=== PATIENT | female | born 1950 | race Caucasian/White ===

== ENCOUNTER 2020-06-14 10:35 | Inpatient (IN) | payer MEDICARE, SELFPAY ==
[2020-06-14] VITALS (20 sets, daily range): BP systolic 79–121; BP diastolic 44–71; PULSE 68–94; RESP 16–28; TEMP 36.3–37.1; O2SAT 89–97; BMI 23.7; BMI 24.6; BMI 24.7
--- NOTE | 2020-06-14 10:52 | EKG12_ITS ---
Test Reason : ABNL EKG Blood Pressure : / mmHG Vent. Rate : 070 BPM Atrial Rate : 070 BPM P-R Int : 134 ms QRS Dur : 078 ms QT Int : 378 ms P-R-T Axes : 067 067 065 degrees QTc Int : 408 ms Normal sinus rhythm Normal ECG Confirmed by GALA RAE, RUTHIE ([id number]), editor newspaper WILLIAM LINN ([id number]) on 06/17/2020 10:50:39 AM Referred By: RACHEL Confirmed By:RUTHIE CEDEÑO MD
--- NOTE | 2020-06-14 10:52 | RAD_ITS ---
STUDY: X-RAY CHEST REASON FOR EXAM: Female, 70 years old. sob, dizziness, cough, vomiting TECHNIQUE: Frontal view COMPARISON: 08/16/2017. FINDINGS: The lungs are clear and expanded. There is no demonstrated pleural abnormality. Normal size heart. Normal mediastinum and loy. Normal visualized pulmonary arteries. Normal visualized aortic arch and descending thoracic aorta. Normal visualized thoracic spine. Normal visualized ribs, clavicles, and shoulders. There is no demonstrated abnormality of the visualized soft tissue structures of the upper abdomen. RAD/Chest 1 View (Portable) IMPRESSION: Normal x-ray examination of the chest. Electronically Signed: Philippe Joe DO at 12:24 EDT Tel [phone], Service support ,
[2020-06-14 11:01] LABS: Absolute Lymphocyte Count 2.43 X10^3/uL (0.83-4.51); Basophil# 0.05 X10^3/uL; Basophil% 0.5 % (0-1); Eosinophil# 0.16 X10^3/uL; Eosinophils% 1.7 % (0-5); Hematocrit 47.4 % (37-47); Hemoglobin 15.4 g/dL (12.0-15.0); Lymphocyte # 2.43 X10^3/ul (4.0); Lymphocyte % 25.8 % (19-41); Mean Corp Hgb Conc 32.5 g/dL (32-36); Mean Corpuscular Hgb 31.4 pg (27.0-32.0); Mean Corpuscular Volume 96.5 fL (81-99); Mean Platelet Vol. 9.8 fl (6.2-12.0); Monocyte# 0.79 X10^3/uL; Monocyte% 8.4 % (0-10); NRBC Flagged by Analyzer 0 % (0-5); Neutrophil # 5.97 X10^3/uL (2.7-7.7); Neutrophil % 63.4 % (47-70); Platelet Count 373 K/mm3 (150-450); RBC Distribution Width CV 12.1 % (11.6-14.6); Red Blood Count 4.91 M/mm3 (4.2-5.4); White Blood Count 9.4 K/mm3 (4.4-11.0)
[2020-06-14 11:08] LABS: Partial Thromboplast Time 25.1 Seconds (24.1-36.2)
--- NOTE | 2020-06-14 11:08 | ED.VIS.FLU ---
History of Present Illness Chief Complaint: Shortness of Breath Informant: Patient, Relative Narrative: Patient presenting for evaluation secondary to shortness of breath. Patient tells me that back in November she suffered an illness that she came into the emergency department for, and was placed on antibiotic. She states that she had some improvement, but basically since November she reports that she has been feeling ill. Patient tells me specifically this week she has been having increasing illness, she has been having some nausea with intermittent vomiting. She has body aches, had a cough that is productive of white sputum. She states that she has exertional dyspnea. She has some constipation but no diarrhea. She denies any fevers, she does have some body aches. She denies any sick contacts. She denies any underlying history of COPD or asthma. Review of systems otherwise negative. Past Medical History - Allergies and Home Meds Allergies/Adverse Reactions: Allergies No Known Allergies Allergy (Verified 06/14/20 10:37) Primary Care Physician: Toshia Henriquez MD [Primary Care Provider] - Prior records reviewed: Yes Past Medical History: - - Stroke, Hypothyroid, Hyperlipidemia Surgical History: cholecystectomy, hysterectomy, - - tennis elbow,carpal tunnel Lives: With Family Smoking Status: Current every day smoker Alcohol: None Drugs: None - Family History Maternal Family History: Reports: - - cva, mother with colon cancer Paternal Family History: Reports: Heart Disease, - - strokes Review of Systems All systems negative except as indicated General: Reports: Malaise Cardiovascular: Reports: Chest pain Respiratory: Reports: Dyspnea, Cough, Sputum Gastrointestinal: Reports: Nausea, Vomiting, Constipation Genitourinary: Denies: Dysuria, Hematuria, Frequency Musculoskeletal: Reports: Myalgias Skin: Denies: Rash Neurological: Denies: Headache, Weakness, Numbness Physical Exam Vital Signs/Narrative: Vital Signs Temp Pulse Resp BP Pulse Ox 06/14/20 10:37 97.4 F L 94 28 H 110/64 97 Inital Vital Signs reviewed: Yes General: Well nourished, Well developed Head: Normocephalic, Atraumatic Eyes: Perrl, EOMI ENT: Moist mucous membranes, No rhinorrhea Neck: Supple, Nontender Cardiovascular: Regular rate, Regular rhythm, No murmurs Respiratory: - - Patient is somewhat tachypneic. She has left-sided rales. She has some transmitted upper airway noises, but these seem intentional and do not seem like stridor as the patient is phonating normally. Abdomen: Soft, Nontender, Nondistended, Normal bowel sounds Back: Nontender, Normal Inspection Extremities: Nontender, No edema Skin: Normal color, No rash Neurological: Alert, Oriented x3, Cranial nerves II-XII grossly intact, Normal Strength, Normal Sensation Psychological: Normal affect Diagnostic/Tx/Re-eval Clinical Impression(s) from Imaging Studies Chest X-Ray 06/14/20 10:52 IMPRESSION: Normal x-ray examination of the chest. Electronically Signed: Philippe Joe DO at 12:24 EDT Tel [phone], Service support , Laboratory Data 06/14/20 06/14/20 06/14/20 10:49 10:49 10:49 WBC 9.4 RBC 4.91 Hgb 15.4 H Hct 47.4 H MCV 96.5 MCH 31.4 MCHC 32.5 RDW Std Deviation 43.0 RDW Coeff of Tania 12.1 Plt Count 373 MPV 9.8 Immature Gran % (Auto) 0.200 Neut % (Auto) 63.4 Lymph % (Auto) 25.8 [place] % (Auto) 8.4 Eos % (Auto) 1.7 Baso % (Auto) 0.5 Absolute Neuts (auto) 6.0 Absolute Lymphs (auto) 2.43 Nucleated RBC % 0 PT 12.3 INR 1.0 APTT 25.1 Sodium 138 Potassium 4.2 Chloride 105 Carbon Dioxide 29.0 Anion Gap 4 L BUN 9 Creatinine 0.90 Estim Creat Clear Calc 53.67 Est GFR (MDRD) Af Amer 80 Est GFR (MDRD) Non-Af 66 BUN/Creatinine Ratio 10.1 Glucose 106 Lactic Acid Calcium 9.0 Total Bilirubin 0.50 AST 16 ALT 17 Alkaline Phosphatase 114 Troponin I < 0.015 Total Protein 7.2 Albumin 3.5 Globulin 3.7 Albumin/Globulin Ratio 0.9 06/14/20 10:49 WBC RBC Hgb Hct MCV MCH MCHC RDW Std Deviation RDW Coeff of Tania Plt Count MPV Immature Gran % (Auto) Neut % (Auto) Lymph % (Auto) [place] % (Auto) Eos % (Auto) Baso % (Auto) Absolute Neuts (auto) Absolute Lymphs (auto) Nucleated RBC % PT INR APTT Sodium Potassium Chloride Carbon Dioxide Anion Gap BUN Creatinine Estim Creat Clear Calc Est GFR (MDRD) Af Amer Est GFR (MDRD) Non-Af BUN/Creatinine Ratio Glucose Lactic Acid 2.8 H* Calcium Total Bilirubin AST ALT Alkaline Phosphatase Troponin I Total Protein Albumin Globulin Albumin/Globulin Ratio - EKG Initial EKG Interpretation: - - Sinus rhythm at [address] segments normal T waves normal CO and QTc intervals no evidence of acute ischemia or arrhythmia - Medical Decision Making Patient presented secondary to cough and generalized illness. She is mildly ill-appearing, not toxic, does have some soft blood pressures work-up for sepsis was obtained. CBC demonstrates no leukocytosis but does show some hemoconcentration, chemistry was unremarkable. Lactic acid was found to be elevated to 2.8 concerning for sepsis. Patient was given fluid resuscitation in the emergency department. She was given Rocephin and azithromycin. Chest x-ray by my personal review as well as radiology shows no infiltrates. Coronavirus testing was sent, although I feel that this is of low likelihood. Upon repeat evaluation at the patient at 1230 she was noted to have a room air pulse ox of 90, when she ambulates it goes around 94. I am concerned that the patient has the early signs of worsening community-acquired pneumonia with lactic acidosis and borderline hypoxia. I believe she requires admission. I will discuss this with hospitalist. ED Disposition - Plan for ED Patient: Disposition: Acute Care Hospital [facility] Diagnosis: Community acquired pneumonia, Hypoxia
[2020-06-14 11:10] LABS: Prothrombin Time (Protime)PT. 12.3 SECONDS (11.7-14.9)
[2020-06-14 11:30] LABS: ALB/GLOB Ratio 0.9 RATIO (0.9-2.4); AST(SGOT) 16 U/L (15-37); Alanine Aminotransfer ALT/SGPT 17 U/L (13-56); Albumin, Serum 3.5 g/dL (3.2-5.0); Alkaline Phosphatase 114 U/L (45-117); Anion Gap 4 (5-15); BUN 9 mg/dL (7-18); BUN/Creat Ratio 10.1 RATIO (10-20); Chloride 105 mmol/L (98-107); EST Glomerular Filtration Rate 66 mL/min (>60); Est Glom Filt Rate - Afr Amer 80 mL/min (>60); Estimated Creatinine Clearance 53.67 ml/min; Globulin 3.7 g/dL (2.2-4.2); Glucose 106 mg/dL (74-106); Potassium 4.2 mmol/L (3.5-5.1); Protein, Total 7.2 g/dL (6.4-8.2); Sodium Level 138 mmol/L (136-145)
[2020-06-14 11:35] LABS: Lactic Acid 2.8 mmol/L (0.4-1.9)
[2020-06-14] MEDS: 0.9% Normal Saline 1,000 ML 999 ML IV (12:03)
[2020-06-14] MEDS: Ceftriaxone 1 GM/50 ML BAG IV (12:03)
[2020-06-14 13:05] LABS: Probe Check PASS; Specimen Processing Control PASS
[2020-06-14 13:10] LABS: Bacteria 0 SEEN /hpf (None Seen); Mucous, Urine 0 SEEN /hpf (<or=2+); Red Blood Cells-Urine 0 SEEN /hpf (0-5); White Blood Cells 0 SEEN /hpf (0-5)
[2020-06-14 13:18] LABS: Color, Urine Yellow (Yellow); Glucose, Dipstick Normal (Normal); Ketone-Dipstick Negative (Negative); Leukocyte Esterase-Dipstick Negative /ul (Negative); Nitrite-Dipstick Negative (Negative); Occult Blood-Urine Negative /ul (Negative); Protein-Dipstick Negative (Negative); Urine Bilirubin Dipstick Negative (Negative); Urine Clarity Clear (Clear); Urine Urobilinogen Normal (Normal)
[2020-06-14 13:28] LABS: Squamous Epithelial Cells - UA 0-5 SEEN /hpf (5-10)
--- NOTE | 2020-06-14 13:43 | PCM.HP.STD ---
History of Present Illness Date of Admission: 06/14/20 Chief Complaint: shortness of breath The patient is a 70 year old F who for the past week has been progressively short of breath. Patient has been adamant about not coming to the hospital until the daughter was able to get the patient come to the hospital. Patient has just been more short of breath. She has been trying to use honey with apple cider vinegar without relief. Patient just been short of breath as well as coughing. Patient presented to the emergency room where her initial vital signs were concerning as she had a pulse 94 and a respiratory rate of 28 though she was not hypoxic. Lab work was significant only for a lactic acid of 2.8. Chest x-ray was unremarkable but concern was for early onset pneumonia and patient received ceftriaxone as well as azithromycin. Patient complains of right-sided neck pain as well as a headache. States that she has had blurred vision over the past couple weeks but that is been unchanged and bilateral. She denies any anosmia nor dysgeusia, denies any sick contacts and denies any direct contact with anyone with COVID-19. [] Past Medical History Past Medical History (Chronic Problems): Chronic Problems Anxiety (Chronic) Medical History: Medical History (Last Updated 06/14/20 @ 13:[address] Wily Delatorre, DO) CVA (cerebral vascular accident) I63.9 Depression F32.9 Allergies No Known Allergies Allergy (Verified 06/14/20 10:37) Home Medications: Ambulatory Orders Medication Instructions Recorded Aspirin [Adult Low Dose Aspirin EC] 81 mg PO DAILY 07/21/16 Levothyroxine [Synthroid] 25 mcg PO DAILY 07/21/16 Atorvastatin Calcium [Lipitor] 20 mg PO QHS 06/14/20 Escitalopram Oxalate [Lexapro] 5 mg PO DAILY 06/14/20 Surgical History: cholecystectomy, hysterectomy, - - tennis elbow,carpal tunnel Lives: With Family Smoking Status: Light Smoker (<10/day) Tobacco Use: Cigarettes Alcohol: None Drugs: None - *Family History Maternal History Items: - - cva, mother with colon cancer Paternal History Items: Heart Disease, - - strokes Review of Systems Constitutional: Reports: Malaise. Denies: Anorexia, Chills, Fever Eyes: Reports: Blurred vision. Denies: Double vision HEENT: Denies: Head Aches, Sinus Congestion, Sinus Drainage Cardiovascular: Denies: Chest Pain, Palpitations Respiratory: Reports: Cough, Shortness of Breath, Sputum production - clear Gastrointestinal: Denies: Abdominal Pain, Nausea, Vomiting Genitourinary: Denies: Dysuria Musculoskeletal: Reports: - - right arm/hand hyperesthesia since CVA Skin: Denies: Rash, Wounds Neurological: Denies: Numbness, Tingling, Focal weakness Hematologic/ Lymphatic: Denies: Easy Bruising, Easy Bleeding, Hx of blood clot Comment: All review of systems were negative except as mentioned above in the history of present illness and the other review of systems. VTE Information - Inpt Only VTE Present on Admission: No VTE Mechan Device Prophylaxis: None VTE Pharm Prophylaxis ordered?: No Reason prophylaxis not ordered:: Treatment Not Indicated Patient Problems: Active and Suspected Problems Community acquired pneumonia (Acute) Hypoxia (Acute) - Physical Exam Vitals/I&O's: Vital Signs Temp Pulse Resp BP Pulse Ox 36.7 C 77 18 121/58 H 89 06/14/20 13:01 06/14/20 13:36 06/14/20 13:36 06/14/20 13:36 06/14/20 13:36 Oxygen Delivery Method Room Air Weight: 66.678 kg Body Mass Index (BMI) 23.7 Finger Stick Blood Glucose 137 Intake and Output for Last 24 Hours 06/12/20 06/13/20 06/14/20 23:59 23:59 23:59 Intake Total 50 / 50 Balance 50 / 50 General: Alert, Cooperative, No apparent distress HEENT: Atraumatic, PERRLA, Normocephalic, - - No scleral icterus Oral: Moist Mucosa, No Gingival or Mucosal Lesions/ Ulcerations Neck: No Nodes, Thyroid Normal Size and Texture Lungs: Normal air movement, - - Crackles in the left lower lobe Cardiovascular: Regular rate, Regular Rhythm Abdomen: Bowel Sounds Present, Soft, Non Tender, Non-Distended Extremities: No edema, No Calf Tenderness Skin: No rashes, No breakdown Musculoskeletal: No Tenderness to Palpation of Joints or Extremities, No Muscle Wasting Lymphatic: No Cervical, Supraclavicular, or Inguinal Adenopathy, Cervical Adenopathy Neurological: Motor Exam 5/5 strength throughout, - - No clonus Psych/Mental Status: Normal Affect, Appropriate Laboratory Results 06/14/20 10:49: WBC 9.4, RBC 4.91, Hgb 15.4 H, Hct 47.4 H, MCV 96.5, MCH 31.4, MCHC 32.5, RDW Std Deviation 43.0, RDW Coeff of Tania 12.1, Plt Count 373, MPV 9.8, Immature Gran % (Auto) 0.200, Neut % (Auto) 63.4, Lymph % (Auto) 25.8, [place] % (Auto) 8.4, Eos % (Auto) 1.7, Baso % (Auto) 0.5, Absolute Neuts (auto) 6.0, Absolute Lymphs (auto) 2.43, Nucleated RBC % 0 06/14/20 10:49: PT 12.3, INR 1.0, APTT 25.1 06/14/20 10:49: Sodium 138, Potassium 4.2, Chloride 105, Carbon Dioxide 29.0, Anion Gap 4 L, BUN 9, Creatinine 0.90, Estim Creat Clear Calc 53.67, Est GFR (MDRD) Af Amer 80, Est GFR (MDRD) Non-Af 66, BUN/Creatinine Ratio 10.1, Glucose 106, Calcium 9.0, Total Bilirubin 0.50, AST 16, ALT 17, Alkaline Phosphatase 114, Troponin I < 0.015, Total Protein 7.2, Albumin 3.5, Globulin 3.7, Albumin/Globulin Ratio 0.9 06/14/20 10:49: Lactic Acid 2.8 H* 06/14/20 11:52: COVID-19 (CHARLES) Negative 06/14/20 13:00: Urine Color Yellow, Urine Clarity Clear, Urine pH 7.0, Ur Specific [place] 1.010, Urine Protein Negative, Urine Glucose (UA) Normal, Urine Ketones Negative, Urine Occult Blood Negative, Urine Nitrite Negative, Urine Bilirubin Negative, Urine Urobilinogen Normal, Ur Leukocyte Esterase Negative, Urine RBC 0 SEEN, Urine WBC 0 SEEN, Ur Squamous Epith Cells 0-5 SEEN, Urine Bacteria 0 SEEN, Urine Mucus 0 SEEN Chest x-ray reviewed shows some chronic changes but no acute infiltrate nor edema. Assessment/Plan All Active Problems Community acquired pneumonia (Acute) Hypoxia (Acute) Stroke (Acute) Hypothyroid (Acute) Facial droop (Acute) 1. Severe sepsis: Patient met 2 of 4 Sirs criteria plus a lactic acid of 2.8. Presumably this is related with early onset pneumonia or bronchitis. COVID-19 negative here. Patient received Rocephin and azithromycin in the emergency room. Urinalysis negative. Blood cultures drawn and pending. 2. Pneumonia, presumed pneumococcal: Continue with antibiotics as above. Check urinary antigens for Streptococcus and Legionella. Check sputum culture. 3. History of stroke: Continue with aspirin and atorvastatin 4. VTE prophylaxis: Not indicated as patient is observation at this time. Clinically, patient is hemodynamically stable. Patient will be admitted to the ICU, not of clinical concern, but out of compliance is put forth by Quality as put forth by this institution. OBSV E&M: [id number] Initial observation care L3
[2020-06-14 14:58] LABS: Reflex Lactate? Y
[2020-06-14 15:52] LABS: Lactic Acid 1.4 mmol/L (0.4-1.9)
--- NOTE | 2020-06-14 17:12 | EKG12_ITS ---
Test Reason : CP Blood Pressure : / mmHG Vent. Rate : 080 BPM Atrial Rate : 080 BPM P-R Int : 130 ms QRS Dur : 074 ms QT Int : 376 ms P-R-T Axes : 061 063 063 degrees QTc Int : 433 ms Normal sinus rhythm Normal ECG When compared with ECG of 16-AUG-2017 22:08, ST now depressed in Anterior leads Confirmed by GALA RAE, RUTHIE ([id number]), editor & co founder WILLIAM LINN ([id number]) on 06/17/2020 10:51:10 AM Referred By: RACHEL Confirmed By:RUTHIE CEDEÑO MD
--- NOTE | 2020-06-14 17:13 | NURSING ---
arrived from ICU @ 1700
--- NOTE | 2020-06-14 17:21 | NURSING ---
pt c/o chest pain, at a 5 and stated she has never felt like this before, pt also c/o sob. ekg ordered rt notified of ekg order. dr mckeon notified of chest pain.
[2020-06-14] MEDS: Acetaminophen 325 MG Tablet 650 MG PO (21:04)
[2020-06-14] MEDS: guaiFENesin 1,200 MG Tablet 1200 MG PO (21:04)
[2020-06-14] MEDS: Atorvastatin Calcium 20 MG Tablet PO (21:04)
[2020-06-14] MEDS: 0.9% Saline Lock 10 ML Syringe IV (21:17)
[2020-06-15] VITALS (11 sets, daily range): BP systolic 83–98; BP diastolic 51–58; PULSE 64–88; RESP 16–20; TEMP 36.6–37.2; O2SAT 88–98
[2020-06-15] MEDS: Levothyroxine 25 MCG TABLET PO (06:03)
[2020-06-15] MEDS: 0.9% Saline Lock 10 ML Syringe IV (06:06)
[2020-06-15 06:29] LABS: Absolute Lymphocyte Count 3.38 X10^3/uL (0.83-4.51); Absolute Neutrophil Count 2.8 X10^3/uL (2.0-7.7); Basophil# 0.05 X10^3/uL; Basophil% 0.7 % (0-1); Eosinophil# 0.23 X10^3/uL; Eosinophils% 3.2 % (0-5); Hematocrit 44.3 % (37-47); Lymphocyte # 3.38 X10^3/ul (4.0); Lymphocyte % 47.3 % (19-41); Mean Corp Hgb Conc 31.6 g/dL (32-36); Mean Corpuscular Hgb 30.3 pg (27.0-32.0); Mean Corpuscular Volume 95.9 fL (81-99); Mean Platelet Vol. 10.1 fl (6.2-12.0); Monocyte# 0.72 X10^3/uL; Monocyte% 10.1 % (0-10); NRBC Flagged by Analyzer 0 % (0-5); Neutrophil # 2.76 X10^3/uL (2.7-7.7); Neutrophil % 38.6 % (47-70); Platelet Count 363 K/mm3 (150-450); RBC Distribution Width CV 12.1 % (11.6-14.6); RBC Distribution Width SD 42.5 fl (35.1-43.9); Red Blood Count 4.62 M/mm3 (4.2-5.4); White Blood Count 7.2 K/mm3 (4.4-11.0)
[2020-06-15 06:48] LABS: Anion Gap 4 (5-15); BUN 8 mg/dL (7-18); BUN/Creat Ratio 10.1 RATIO (10-20); Calcium,Total 8.7 mg/dL (8.5-10.1); Chloride 108 mmol/L (98-107); Creatinine, Serum 0.79 mg/dL (0.55-1.02); EST Glomerular Filtration Rate 76 mL/min (>60); Est Glom Filt Rate - Afr Amer 92 mL/min (>60); Glucose 89 mg/dL (74-106); Potassium 4.6 mmol/L (3.5-5.1); Sodium Level 143 mmol/L (136-145)
[2020-06-15] MEDS: Aspirin E.C. 81 MG Tablet PO (08:52)
[2020-06-15] MEDS: guaiFENesin 1,200 MG Tablet 1200 MG PO ×2 (10:13→20:08)
[2020-06-15] MEDS: Escitalopram Oxalate 10 MG Tablet 5 MG PO (10:13)
--- NOTE | 2020-06-15 11:28 | PCM.PN.HOSP ---
Patient Problems: Active and Suspected Problems (Last Updated 06/14/20 @ 13:[address] Wily Delatorre, DO) Community acquired pneumonia (Acute) Hypoxia (Acute) Reason for Visit: pneumonia Subjective: Feeling better. Still with intermittent headache. Vitals/I&O's: Vital Signs Temp Pulse Resp BP Pulse Ox 36.9 C 76 16 98/54 L 88 06/15/20 08:35 06/15/20 08:35 06/15/20 08:35 06/15/20 08:35 06/15/20 09:11 Oxygen Flow Rate (L/min) 2 Oxygen Delivery Method Room Air Weight: 67.268 kg Body Mass Index (BMI) 24.6 Finger Stick Blood Glucose 137 Intake and Output for Last 24 Hours 06/13/20 06/14/20 06/15/20 23:59 23:59 23:59 Intake Total 1555 / 1555 300 / 300 Balance 1555 / 1555 300 / 300 General: Alert, No apparent distress HEENT: Atraumatic, Normocephalic Oral: Moist Mucosa, No Gingival or Mucosal Lesions/ Ulcerations Neck: No Nodes, Thyroid Normal Size and Texture Lungs: Clear to auscultation, Normal air movement, No rhonchi, No wheeze Cardiovascular: Regular rate, Regular Rhythm, Normal S1, Normal S2 Abdomen: Bowel Sounds Present, Soft, Non Tender, Non-Distended Extremities: No edema, No Calf Tenderness Skin: No rashes, No breakdown Musculoskeletal: - - reproducible chest pain Psych/Mental Status: Normal Affect, Appropriate Microbiology Past 72 Hours 06/14/20 22:10 Sputum, Expectorated/Coughed Gram Stain - Final 06/14/20 13:00 Urine, Clean Catch Legionella Antigen - Final 06/14/20 13:00 Urine, Clean Catch Streptococcus pneumoniae Antigen (M - Final Laboratory Results 06/14/20 10:49: Sodium 138, Potassium 4.2, Chloride 105, Carbon Dioxide 29.0, Anion Gap 4 L, BUN 9, Creatinine 0.90, Estim Creat Clear Calc 53.67, Est GFR (MDRD) Af Amer 80, Est GFR (MDRD) Non-Af 66, BUN/Creatinine Ratio 10.1, Glucose 106, Calcium 9.0, Total Bilirubin 0.50, AST 16, ALT 17, Alkaline Phosphatase 114, Troponin I < 0.015, Total Protein 7.2, Albumin 3.5, Globulin 3.7, Albumin/Globulin Ratio 0.9 06/14/20 10:49: Lactic Acid 2.8 H* 06/14/20 11:52: COVID-19 (CHARLES) Negative 06/14/20 13:00: Urine Color Yellow, Urine Clarity Clear, Urine pH 7.0, Ur Specific [place] 1.010, Urine Protein Negative, Urine Glucose (UA) Normal, Urine Ketones Negative, Urine Occult Blood Negative, Urine Nitrite Negative, Urine Bilirubin Negative, Urine Urobilinogen Normal, Ur Leukocyte Esterase Negative, Urine RBC 0 SEEN, Urine WBC 0 SEEN, Ur Squamous Epith Cells 0-5 SEEN, Urine Bacteria 0 SEEN, Urine Mucus 0 SEEN 06/14/20 15:00: Lactic Acid 1.4 06/14/20 17:43: Troponin I < 0.015 06/14/20 20:30: Troponin I < 0.015 06/14/20 23:02: Troponin I < 0.015 06/15/20 05:50: WBC 7.2, RBC 4.62, Hgb 14.0, Hct 44.3, MCV 95.9, MCH 30.3, MCHC 31.6 L, RDW Std Deviation 42.5, RDW Coeff of Tania 12.1, Plt Count 363, MPV 10.1, Immature Gran % (Auto) 0.100, Neut % (Auto) 38.6 L, Lymph % (Auto) 47.3 H, [place] % (Auto) 10.1 H, Eos % (Auto) 3.2, Baso % (Auto) 0.7, Absolute Neuts (auto) 2.8, Absolute Lymphs (auto) 3.38, Nucleated RBC % 0 06/15/20 05:50: Sodium 143, Potassium 4.6, Chloride 108 H, Carbon Dioxide 31.0, Anion Gap 4 L, BUN 8, Creatinine 0.79, Estim Creat Clear Calc 48.30, Est GFR (MDRD) Af Amer 92, Est GFR (MDRD) Non-Af 76, BUN/Creatinine Ratio 10.1, Glucose 89, Calcium 8.7 Current Medications Acetaminophen (Tylenol) 650 mg PO Q6H PRN PRN PRN Reason: Pain Score 1-10/Temp > 100.7 F Last Admin: 06/14/20 21:04 Dose: 650 mg Documented by: Albuterol Sulfate (Ventolin Aerosols) 2.5 mg INHALATION Q2H PRN PRN PRN Reason: SOB/Wheezing Aspirin (Ecotrin) 81 mg PO DAILYCM [facility] Last Admin: 06/15/20 08:52 Dose: 81 mg Documented by: Atorvastatin Calcium (Lipitor) 20 mg PO QHS [facility] Last Admin: 06/14/20 21:04 Dose: 20 mg Documented by: Escitalopram Oxalate (Lexapro) 5 mg PO DAILY [facility] Last Admin: 06/15/20 10:13 Dose: 5 mg Documented by: Guaifenesin (Mucinex) 1,200 mg PO BID [facility] Last Admin: 06/15/20 10:13 Dose: 1,200 mg Documented by: Ceftriaxone Sodium 2 gm/ (Sodium Chloride) 50 mls @ 100 mls/hr IV Q24 [facility] Stop: 06/22/20 10:01 Azithromycin 500 mg/ Dextrose 255 mls @ 250 mls/hr IV Q24 [facility] Stop: 06/20/20 10:01 Levothyroxine Sodium (Synthroid) 25 mcg PO DAILY@0600 [facility] Last Admin: 06/15/20 06:03 Dose: 25 mcg Documented by: Ondansetron HCl (Zofran) 4 mg IV Q8H PRN PRN PRN Reason: NAUSEA/VOMITING Sodium Chloride () 10 - 40 ml IV UD PRN PRN Reason: SALINE FLUSH Last Admin: 06/15/20 06:06 Dose: 10 ml Documented by: STROKE Vital Signs/Narrative: Vital Signs Temp Pulse Resp BP Pulse Ox 06/15/20 09:11 88 06/15/20 08:35 36.9 C 76 16 98/54 L 92 Medical Necessity - Tobacco Use Smoking Status: Light Smoker (<10/day) Tobacco Use: Cigarettes Assessment/Plan All Active Problems (Last Updated 06/14/20 @ 13:[address] Wily Delatorre, DO) Facial droop (Acute) Hypothyroid (Acute) Stroke (Acute) Community acquired pneumonia (Acute) Hypoxia (Acute) 1. Severe sepsis: Patient met 2 of 4 Sirs criteria plus a lactic acid of 2.8. Presumably this is related with early onset pneumonia or bronchitis. COVID-19 negative Patient received Rocephin and azithromycin in the emergency room. Urinalysis negative. Blood cultures drawn and pending. 2. Pneumonia, presumed pneumococcal: Continue with antibiotics as above. urinary antigens for Streptococcus and Legionella are negative sputum culture pending 3. Acute hypoxic respiratory insuffiency ambulatory pulse ox 88% on room air will need to assess for home oxygen if still persists on discharge 4. Chest pain: atypical and reproducible troponins negative no additional work up 5. History of stroke: Continue with aspirin and atorvastatin 6. VTE prophylaxis: add LMWH Will change status to admission as patient to monitored overnight to ensure stability.
--- NOTE | 2020-06-15 17:07 | EKG12_ITS ---
Test Reason : SOB Blood Pressure : / mmHG Vent. Rate : 075 BPM Atrial Rate : 075 BPM P-R Int : 138 ms QRS Dur : 080 ms QT Int : 348 ms P-R-T Axes : 064 048 047 degrees QTc Int : 388 ms Normal sinus rhythm Normal ECG Confirmed by ZACHERY RAE, RUSTAM ([id number]), editor continuity and script WILLIAM LINN ([id number]) on 06/16/2020 9:03:59 AM Referred By: MANAV Confirmed By:RUSTAM BINGHAM MD
[2020-06-15] MEDS: Acetaminophen 325 MG Tablet 650 MG PO (20:07)
[2020-06-15] MEDS: Atorvastatin Calcium 20 MG Tablet PO (20:08)
[2020-06-16] VITALS (10 sets, daily range): BP systolic 93–106; BP diastolic 51–63; PULSE 70–86; RESP 18–20; TEMP 36.6–36.9; O2SAT 93–98
[2020-06-16] MEDS: Levothyroxine 25 MCG TABLET PO (06:00)
[2020-06-16] MEDS: Enoxaparin 40 MG/0.4 ML Syringe SC (06:00)
[2020-06-16] MEDS: Aspirin E.C. 81 MG Tablet PO (09:10)
[2020-06-16] MEDS: guaiFENesin 1,200 MG Tablet 1200 MG PO (09:10)
[2020-06-16] MEDS: Escitalopram Oxalate 10 MG Tablet 5 MG PO (09:10)
[2020-06-16] MEDS: Acetaminophen 325 MG Tablet 650 MG PO (10:21)
--- NOTE | 2020-06-16 10:50 | CASEMGMT ---
RN STACY Face to Face with patient for initial transition planning/care coordination assessment. RN CM introduced self and role at [facility]. Patient sitting in chair, alert and oriented. Patient willing to participate in assessment and is able to answer all questions appropriately. Care providers, pharmacy, and demographics verified. Patient wishes to discharge home, denies need for home health at this time. Patient states she has no further needs or concerns at this time. CM to follow for discharge planning needs that may arise. PCP: [place] Specialists: none Preferred Pharmacy: [facility] John Insurance: [employer] [facility] Prescription Benefit: yes Living Will/HPOA: none LNOK: daughter Living Arrangements: Patient lives with daughter in a mobile home with 4 steps and railing to enter the home. Transportation: daughter DME/HHC: Patient states she has shower chair, cane, walker, and grab bars at home. Patient states she has previously been to [facility] and has had HHC in the past. Disposition Plan: Patient to discharge home with family support and follow-up plans in place. Cyndy ANTON, RN, CM
[2020-06-16] MEDS: Benzonatate 100 MG Capsule 200 MG PO ×2 (11:13→14:37)
--- NOTE | 2020-06-16 11:43 | DCINST_ITS ---
- Discharge Diagnoses Current Active Problems: Current Active and Chronic Problems (Last Updated 06/14/20 @ 13:[address] Wily Delatorre, DO) Community acquired pneumonia (Acute) Hypoxia (Acute) You will use the following diet at home:: Cardiac Your food should be the consistency of: Regular Discharge Activity: May Not Drive Call your doctor if you observe: Fever of 101 or Higher, Coldness, Increased Pain, Change in Color, Inability to urinate, Inability to have a bowel movement, Shortness of breath, Dizziness, Swelling in the ankles, Chest pain, Prolonged hiccoughing, Increased palpitations (irregular heartbeat) Allergies/Adverse Reactions: Allergies No Known Allergies Allergy (Verified 06/14/20 10:37) Medications to take at Discharge Aspirin [Adult Low Dose Aspirin EC] 81 mg PO DAILY 07/21/16 Levothyroxine [Synthroid] 25 mcg PO DAILY 07/21/16 Atorvastatin Calcium [Lipitor] 20 mg PO QHS 06/14/20 Escitalopram Oxalate [Lexapro] 5 mg PO DAILY 06/14/20 Benzonatate [Tessalon Perle] 200 mg PO TID #15 cap 06/16/20 Cefdinir 300 mg PO BID #4 cap 06/16/20 Guaifenesin [Mucinex] 1,200 mg PO BID #14 tab 06/16/20 The following prescriptions were given: Cefdinir 300 mg PO BID #4 cap Transmission Status: Received by [id number] Guaifenesin [Mucinex] 1,200 mg PO BID #14 tab Transmission Status: Received by [id number] Benzonatate [Tessalon Perle] 200 mg PO TID #15 cap Transmission Status: Received by [id number] Primary Care Physician: Toshia Henriquez MD [Primary Care Provider] - Please follow up with your Primary Care Physician in: in 2 week Test Results: Test results from this visit will be discussed in further detail at your follow- up appointment, if applicable.
--- NOTE | 2020-06-16 11:45 | PCM.DC.SUM ---
Discharge Date and Diagnosis - Problem List Patient Problems: Active and Suspected Problems (Last Updated 06/14/20 @ 13:[address] Wily Delatorre DO) Community acquired pneumonia (Acute) Hypoxia (Acute) Date of Admission: 06/14/20 Date of Discharge: 06/16/20 - Primary Discharge Diagnosis Acute Problems: Active Problems (Last Updated 06/14/20 @ 13:[address] Wily Delatorre DO) Community acquired pneumonia (Acute) Hypoxia (Acute) - Secondary Discharge Diagnosis Chronic Problems: Chronic Problems (Last Updated 06/14/20 @ 13:[address] Wily Delatorre DO) Anxiety (Chronic) Hospital Course and Treatment Operations: None Summary of Care Provided: The patient is a 70 year old F was admitted with progressively worsening of shortness of breath and cough. Respiratory rate was 28 but not hypoxic. Chest x-ray unremarkable. Lactic acid was elevated significantly 2.8. Patient denies any direct contact with suspected or known COVID-19 denies anosmia, dysgeusia in her COVID-19 PCR was negative. Repeat lactic acid was 1.4 [facility] Patient was [facility] on [facility] floor [] 1. Severe sepsis: 2/4 SIRS criteria with elevated lactic acid secondary to early onset pneumonia or bronchitis. COVID-19 PCR negative. Infectious work-up was negative. Sputum culture shows normal respiratory lourdes. Urinary antigens negative. Did not had fever during the hospital course. Patient had 3 days of IV antibiotics and discharged on 2 more days to complete a total of 5 days of antibiotic. Discharged on Ceftin ear. 2. Clinical early onset pneumonia, presumed pneumococcal: As mentioned above 3. Acute hypoxic respiratory insuffiency ambulatory pulse ox 88% on room air. Walking pulse oximetry shows 93% on room air. 4. chest pain only pleuritic from cough: atypical and reproducible troponins negative no additional work up. Acute coronary syndrome ruled out 5. History of stroke: Continue with aspirin and atorvastatin 6. VTE prophylaxis: add LMWH Discharge medication reconciliation done. Discharge follow-up instructions completed. Discharge process discussed with the patient and all questions were answered to patient's satisfaction. Total time spent, exact 35 minutes on discharge meds reconciliation, examination, coordination of care with nurses and ancillary staff, review of imaging and blood test and discussion with the patient on follow-up instructions Patient Problems: Active and Suspected Problems (Last Updated 06/14/20 @ 13:[address] Wily Delatorre, DO) Community acquired pneumonia (Acute) Hypoxia (Acute) Subjective: Patient has bouts of cough and gets mild short of breath at the end of the cough. She has chronically low blood pressure. During her hospital course of blood pressure is in systolic 90s. She walked around the nursing station and pulse ox 93% on room air. She did not feel dizzy, lightheaded on walking and no obvious signs of hypotension. Objective: Physical exam General: Alert, Oriented x3, Cooperative HEENT: Atraumatic, PERRLA, EOMI, Normocephalic. Chronic left vocal cord paralysis with hoarseness of voice. Oral: No Gingival or Mucosal Lesions/ Ulcerations Neck: Supple, No JVD, Negative Carotid Bruits Lungs: Air entry diminished in bilateral lung bases. No crepitation/rhonchi. No tachypnea or hypoxia. Cardiovascular: Regular rate, Regular Rhythm, Normal S1, Normal S2, No murmurs Abdomen: Bowel Sounds Present, Soft, Non Tender, Non-Distended : No renal angle tenderness. No suprapubic tenderness. Extremities: No edema, Capillary Refill Less than 3 Seconds Skin: No rashes, No breakdown Musculoskeletal: No Tenderness to Palpation of Joints or Extremities Neurological: Cranial nerves II-XII grossly intact, Deep Tendon Reflexes 2+/4 and Symmetrical, Neuro grossly intact Psych/Mental Status: Normal Affect, Appropriate. - Physical Exam Vitals/I&O's: Vital Signs Temp Pulse Resp BP Pulse Ox 98.5 F 71 20 H 106/55 L 96 06/16/20 08:52 06/16/20 09:25 06/16/20 08:52 06/16/20 08:52 06/16/20 08:52 Oxygen Flow Rate (L/min) 2 Oxygen Delivery Method Nasal Cannula Weight: 149 lb 14.629 oz Body Mass Index (BMI) 24.6 Finger Stick Blood Glucose 137 Intake and Output for Last 24 Hours 06/14/20 06/15/20 06/16/20 23:59 23:59 23:59 Intake Total 1555 / 1555 605 / 605 50 / 50 Balance 1555 / 1555 605 / 605 50 / 50 Microbiology Past 72 Hours 06/14/20 22:10 Sputum, Expectorated/Coughed Gram Stain - Final 06/14/20 22:10 Sputum, Expectorated/Coughed Respiratory Culture - Preliminary Appears to be normal respiratory lourdes. Further studies to follow. 06/14/20 13:00 Urine, Clean Catch Urine Culture - Preliminary Culture exhibits no growth. 06/14/20 13:00 Urine, Clean Catch Legionella Antigen - Final 06/14/20 13:00 Urine, Clean Catch Streptococcus pneumoniae Antigen (M - Final Current Medications Acetaminophen (Tylenol) 650 mg PO Q6H PRN PRN PRN Reason: Pain Score 1-10/Temp > 100.7 F Last Admin: 06/16/20 10:21 Dose: 650 mg Documented by: Albuterol Sulfate (Ventolin Aerosols) 2.5 mg INHALATION Q2H PRN PRN PRN Reason: SOB/Wheezing Aspirin (Ecotrin) 81 mg PO DAILYCM [facility] Last Admin: 06/16/20 09:10 Dose: 81 mg Documented by: Atorvastatin Calcium (Lipitor) 20 mg PO QHS [facility] Last Admin: 06/15/20 20:08 Dose: 20 mg Documented by: Benzonatate (Tessalon Perle) 200 mg PO TID [facility] Last Admin: 06/16/20 11:13 Dose: 200 mg Documented by: Enoxaparin Sodium (Lovenox) 40 mg SC DAILY@0600 [facility] Last Admin: 06/16/20 06:00 Dose: 40 mg Documented by: Escitalopram Oxalate (Lexapro) 5 mg PO DAILY [facility] Last Admin: 06/16/20 09:10 Dose: 5 mg Documented by: Guaifenesin (Mucinex) 1,200 mg PO BID [facility] Last Admin: 06/16/20 09:10 Dose: 1,200 mg Documented by: Ceftriaxone Sodium 2 gm/ (Sodium Chloride) 50 mls @ 100 mls/hr IV Q24 [facility] Stop: 06/22/20 10:01 Last Infusion: 06/16/20 09:40 Dose: Infused Documented by: Azithromycin 500 mg/ Dextrose 255 mls @ 250 mls/hr IV Q24 [facility] Stop: 06/20/20 10:01 Last Admin: 06/16/20 10:20 Dose: 250 mls/hr Documented by: Levothyroxine Sodium (Synthroid) 25 mcg PO DAILY@0600 [facility] Last Admin: 06/16/20 06:00 Dose: 25 mcg Documented by: Ondansetron HCl (Zofran) 4 mg IV Q8H PRN PRN PRN Reason: NAUSEA/VOMITING Sodium Chloride () 10 - 40 ml IV UD PRN PRN Reason: SALINE FLUSH Last Admin: 06/15/20 06:06 Dose: 10 ml Documented by: Discharge Activity: May Not Drive Call your doctor if you observe: Fever of 101 or Higher, Coldness, Increased Pain, Change in Color, Inability to urinate, Inability to have a bowel movement, Shortness of breath, Dizziness, Swelling in the ankles, Chest pain, Prolonged hiccoughing, Increased palpitations (irregular heartbeat) Home Medications: Medications to take at Discharge Aspirin [Adult Low Dose Aspirin EC] 81 mg PO DAILY 07/21/16 Levothyroxine [Synthroid] 25 mcg PO DAILY 07/21/16 Atorvastatin Calcium [Lipitor] 20 mg PO QHS 06/14/20 Escitalopram Oxalate [Lexapro] 5 mg PO DAILY 06/14/20 Benzonatate [Tessalon Perle] 200 mg PO TID #15 cap 06/16/20 Cefdinir 300 mg PO BID #4 cap 06/16/20 Guaifenesin [Mucinex] 1,200 mg PO BID #14 tab 06/16/20 Following Prescriptions Were Given to Patient: Cefdinir 300 mg PO BID #4 cap Transmission Status: Received by [facility]/pharmacy #[id number] Guaifenesin [Mucinex] 1,200 mg PO BID #14 tab Transmission Status: Received by [facility]/pharmacy #[id number] Benzonatate [Tessalon Perle] 200 mg PO TID #15 cap Transmission Status: Received by [facility]/pharmacy #[id number] Primary Care Physician: Toshia Henriquez MD [Primary Care Provider] - Please follow up with your Primary Care Physician in: in 2 week Medical Necessity - Tobacco Use Smoking Status: Light Smoker (<10/day) Tobacco Use: Cigarettes Meaningful Use Info Meaningful Use Diagnoses (Choose all that apply): None applicable Inpatient E&M: 13358 Disch Hosp
== END 2020-06-16 17:26 | disposition home or self-care (01) | DRG 194 ==
LOC: ED 12:40 → ICU 13:53 → MS3 06-16 07:23 → ICU 06-16 10:28 → MS3 06-16 10:28
PROVIDERS: Emergency Provider Emergency Medicine; PCP Internal Medicine; Visit Provider Internal Medicine
DX: J13 Pneumonia due to Streptococcus pneumoniae (principal); E87.2 Acidosis; R09.02 Hypoxemia; I95.89 Other hypotension; E78.5 Hyperlipidemia, unspecified; E03.9 Hypothyroidism, unspecified; F17.210 Nicotine dependence, cigarettes, uncomplicated; F32.9 Major depressive disorder, single episode, unspecified; F41.9 Anxiety disorder, unspecified; Z79.82 Long term (current) use of aspirin; Z79.890 Hormone replacement therapy; Z79.899 Other long term (current) drug therapy; Z86.73 Personal history of transient ischemic attack (TIA), and cerebral infarction without residual deficits
CPT/HCPCS: 36415; 71045; 80048; 80053; 81001; 83605; 84484; 85025; 85610; 85730; 87040; 87070; 87086; 87205; 87449; 87635; 93005; 94799; 97116; 97162; 97166; 97530; 97802; 99285; 99406; J7030; J7040; J7050; A4216; J0696; U0003

== ENCOUNTER → 2023-03-03 | Outpatient (CLI) | payer MEDICARE, SELFPAY ==
[2023-03-03 17:56] LABS: Hemoglobin 15.7 g/dL (12.0-15.0); Mean Corpuscular Hgb 31.2 pg (27.0-32.0); Mean Corpuscular Volume 97.2 fL (81-99); Mean Platelet Vol. 9.9 fl (6.2-12.0); Platelet Count 450 K/mm3 (150-450); RBC Distribution Width CV 12.3 % (11.6-14.6); RBC Distribution Width SD 44.5 fl (35.1-43.9); Red Blood Count 5.04 M/mm3 (4.2-5.4); White Blood Count 9.7 K/mm3 (4.4-11.0)
[2023-03-03 18:06] LABS: Erythrocyte Sedimentation Rate 11 mm/hr (0-30)
[2023-03-03 18:16] LABS: Vitamin B12 292 pg/mL (211-911)
[2023-03-03 18:33] LABS: ALB/GLOB Ratio 0.8 RATIO (0.9-2.4); AST(SGOT) 16 U/L (15-37); Alanine Aminotransfer ALT/SGPT 22 U/L (13-56); Albumin, Serum 3.5 g/dL (3.2-5.0); Alkaline Phosphatase 104 U/L (45-117); Anion Gap 3 (5-15); BUN 12 mg/dL (7-18); BUN/Creat Ratio 17.5 RATIO (10-20); Calcium,Total 9.1 mg/dL (8.5-10.1); Chloride 102 mmol/L (98-107); Cholesterol 163 mg/dL (200); Creatinine, Serum 0.69 mg/dL (0.55-1.02); EST Glomerular Filtration Rate 89 mL/min (>60); Est Glom Filt Rate - Afr Amer 108 mL/min (>60); Globulin 4.5 g/dL (2.2-4.2); Glucose 94 mg/dL (74-106); High Density Lipoprotein 63 mg/dL; Potassium 4.3 mmol/L (3.5-5.1); Sodium Level 133 mmol/L (136-145); Thyroid Stim Hormone (TSH) 3.76 uIU/mL (0.358-3.74); Triglycerides 131 mg/dL; Very Low Density Lipoprotein 26 mg/dL (5-40)
[2023-03-08 15:09] LABS: Free Kappa Light Chains 14.7 mg/L (3.3-19.4); Free Lambda Light Chains 13.3 mg/L (5.7-26.3); Vitamin B1, Thiamine 196.9 nmol/L (66.5-200.0)
== END | disposition home or self-care (01) ==
PROVIDERS: PCP Internal Medicine; Referring Provider Psychiatry & Neurology Neurology; Visit Provider Psychiatry & Neurology Neurology
DX: R51.9 Headache, unspecified (principal); Z86.73 Personal history of transient ischemic attack (TIA), and cerebral infarction without residual deficits; G62.9 Polyneuropathy, unspecified
CPT/HCPCS: 36415; 80053; 80061; 82607; 82746; 83883; 84425; 84443; 85027; 85652